=== PATIENT | male | born 1970 | race Caucasian/White ===

== ENCOUNTER 2019-12-19 18:49 | Emergency (ER) | payer BC ==
[~2019-12-19] VITALS: Ht 177.8 cm; Wt 108.0 kg
[2019-12-19 19:00] VITALS: Ht 177.8 cm; Wt 108.0 kg
[2019-12-19 21:20] VITALS: BP 119/86
== END 2019-12-19 21:20 | disposition home or self-care (01) ==
LOC: ED 18:49
DX: R51.9 Headache, unspecified (principal); R05 Cough; Z20.828 Contact with and (suspected) exposure to other viral communicable diseases
CPT/HCPCS: J1885; U0003-CS